=== PATIENT | male | born 1995 | race African-American/Black ===

== ENCOUNTER 2025-04-04 12:38 | Emergency (ER) | payer OTHER, SELFPAY ==
[2025-04-04 13:06] VITALS: BP 140/84; PULSE 66; RESP 17; TEMP 36.9; O2SAT 94; BMI 28.8
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
[2025-04-04] MEDS: ONDANSETRON 4 MG ODT SL (13:21)
[2025-04-04] MEDS: ACETAMINOPHEN 325 MG TABLET 975 MG PO (13:22)
[2025-04-04 14:57] VITALS: BP 121/56; PULSE 56; RESP 14; O2SAT 95
== END 2025-04-04 14:59 | disposition home or self-care (01) ==
PROVIDERS: Emergency Provider Physician Assistant
DX: S06.0X0A Concussion without loss of consciousness, initial encounter (principal); S46.912A Strain of unspecified muscle, fascia and tendon at shoulder and upper arm level, left arm, initial encounter; M54.2 Cervicalgia; V89.2XXA Person injured in unspecified motor-vehicle accident, traffic, initial encounter
CPT/HCPCS: 70450; 72125; 73030; 99283; 99284